=== PATIENT | female | born 1945 | race Caucasian/White ===

== ENCOUNTER 2022-03-05 16:00 | Emergency (ER) | payer MEDICARE, OTHER ==
[~2022-03-05 16:00] MED LIST: OXYCODON-ACETA1 EAC1 PO
[2022-03-05 18:01] LABS: BASOPHIL 1.1 % (0-2); EOSINOPHIL 0.2 % (0-7); HCT 39.7 % (37.0-47.0); HGB 13.3 g/dl (12.5-16.0); LYMPHOCYTE 32.8 % (15-48); MCH 31.2 pg (25.0-31.0); MCHC 33.5 g/dL (32.0-36.0); MCV 93.2 fL (78.0-100.0); MONOCYTE 6.3 % (0-12); MPV 9.3 fL (6.0-9.5); NEUTROPHIL 59.1 % (41-80); NRBC 0; PLT 464 K/uL (150-400); RBC 4.26 M/uL (4.20-5.40); RDW 13.5 % (11.5-14.0); WBC 14.6 K/uL (4.0-10.5)
[2022-03-05 18:24] LABS: ALBUMIN 3.7 g/dL (3.4-5.0); BILIRUBIN - TOTAL 0.5 mg/dL (0.2-1.0); BUN/CREAT RATIO (CALC) 27.3 RATIO; CREATININE 0.66 mg/dL (0.51-0.95); GLOBULIN (CALCULATION) 3.2 g/dL; POTASSIUM 3.8 mmol/L (3.5-5.1); TOTAL PROTEIN 6.9 g/dL (6.4-8.2)
== END 2022-03-05 20:54 | disposition home or self-care (01) ==
LOC: FER 16:00
PROVIDERS: Emergency Medicine
DX: M54.50 Low back pain, unspecified (principal); I10 Essential (primary) hypertension; Z88.0 Allergy status to penicillin; Z88.6 Allergy status to analgesic agent; Z88.5 Allergy status to narcotic agent; Z88.8 Allergy status to other drugs, medicaments and biological substances; Z88.4 Allergy status to anesthetic agent; Z28.310 Unvaccinated for COVID-19
CPT/HCPCS: 36415; 72131; 80053; 82550; 85025; J1170; J2550